=== PATIENT | male | born 1940 | race Caucasian/White ===

== ENCOUNTER 2022-08-22 10:23 | Outpatient (CLI) | payer MEDICARE ==
[2022-08-22 10:54] LABS: Bilirubin Negative (Negative); Blood, Urine Trace (Negative); Clarity Clear (Clear); Glucose, Urine (Dipstick) Negative (Negative); Ketone, Urine Negative (Negative); Leukocyte Large (Negative); Nitrite Negative (Negative); Protein, Urine (Dipstick) Negative (Neg-Trace); Urobilinogen 0.2 mg/dL (Less than 2)
[2022-08-22 11:00] LABS: RBC/HPF 0-3 HPF (0-3); Squamous Epithelial None Seen HPF (0-3); WBC/HPF 21-50 HPF (0-3)
[2022-08-22 11:01] LABS: Bacteria/HPF 3+ HPF (None Seen)
== END 2022-08-22 10:24 | disposition home or self-care (01) ==
LOC: NAV LAB 10:23
PROVIDERS: ATTEND Urology
DX: C67.2 Malignant neoplasm of lateral wall of bladder (principal)
CPT/HCPCS: 81001